=== PATIENT | female | born 1945 | race Caucasian/White ===

== ENCOUNTER → 2017-05-02 | Day surgery (SDC) | payer MEDICARE, BC ==
[~2017-05-02] MED LIST: ALBU2.5V14 NEB; AMLO5TAB4 PO; BUDE10.2 IH; CHOL400C PO; CRAN500C6 PO; CYAN10005 PO; DIPH25CA58 PO; HYDR25TA9 PO; HYDROmorphone 2 MG/ML VIAL IV PRN; IV RINGERS,LACTATED 1000ML 1,000 ML IV SCH; LIDOCAINE 1% PF 2 ML VIAL. ID PRN; MAGN400C PO; MELA3TAB2 PO; MORPHINE SULFATE 4 MG/ML DISP.SYRIN. IV PRN; ONDANSETRON PF 4 MG/2 ML VIAL. IV PRN; POTASSIUM CHLO10 MEQ PO; PROAIR HFA8.5 GM INH; PROCHLORPERAZINE 10 MG/2 ML VIAL. IV PRN; PROPOFOL 40 ML IV ONE; TIOT4MIS3 IH; fentaNYL PF VIAL 100 MCG/2 ML VIAL IV PRN
[2017-05-02 08:19] VITALS: BP 103/61
--- NOTE | 2017-05-02 09:36 | HP ---
ADMIT DATE: 05/02/2017 An updated history and physical. REASON: Positive Cologuard, family history of colon cancer and personal history of colon polyps. HISTORY OF PRESENT ILLNESS: This is a 72-year-old female with past medical history significant for colonic polyps as well as arthritis, asthma, depression, hypertension. Is seen for interval colon exam. She has had formed stools without diarrhea or constipation. Weight and appetite have been stable. Cologuard recently was positive. With these findings, she is here for surveillance exam. PAST MEDICAL HISTORY: COPD, asthma, arthritis, anxiety, history of colonic polyps, hypertension. ALLERGIES: None. MEDICATIONS: Include albuterol, Norvasc, Symbicort, vitamin D, B12, potassium chloride. FAMILY AND SOCIAL HISTORY: Significant for colorectal cancer with the father; and 2 siblings, colon polyps. Siblings had esophageal cancer. Mother has had myocardial infarction. PAST SURGICAL HISTORY: Partial colon resection. REVIEW OF SYSTEMS: Per records. PHYSICAL EXAMINATION: GENERAL: Reveals a well-nourished, well-developed female. VITAL SIGNS: Temperature is 98.3, pulse 73, respirations 20. HEENT: Normocephalic and atraumatic head. Pupils and extraocular muscles not tested. Sclerae anicteric. NECK: Supple. LUNGS: Clear. CARDIOVASCULAR: Reveals an S1, S2, without S3, S4 or appreciable murmur. ABDOMEN: Soft abdomen, normal bowel sounds, without appreciable hepatosplenomegaly. EXTREMITIES: Reveals no cyanosis, clubbing or edema. IMPRESSION: Surveillance colonoscopy is recommended with family history of colon cancer, personal history of polyps and a recent positive fecal occult blood. Risks and benefits have been previously discussed. The patient is willing to proceed at this time. BONITA JUDD MD DR: OTF/pam JOB#: [id number] / [id number]
--- NOTE | 2017-05-03 14:13 | PATHOLOGY ---
PATHOLOGY REPORT * * * * * * * * FINAL DIAGNOSIS: A. Splenic flexure polypectomy: - Tubular adenoma. B. Colon biopsies, hepatic flexure polyp: - Tubular adenoma. C. Colon biopsies, cecal polyp: - Tubular adenoma. (JPM:pit; 05/03/2017) COMMENT: There is no high grade dysplasia or evidence of malignancy. (JPM:pit; 05/03/2017) REPORT ELECTRONICALLY SIGNED BY: Freedom Lynch M.D. DATE/TIME: 05/03/2017 14:12 * * * * * * * * GROSS PATHOLOGY: A. The specimen received in formalin, labeled "Floridalma Woanaly and splenic flexure polyp", is a urrutia-brown rubbery polyp 0.8 x 0.5 x 0.4 cm, inked black, bisected and entirely submitted in A1 B. The specimen received in formalin, labeled "Floridalma Woanaly and hepatic flexure polyp", are two polypoid fragments 0.5 x 0.3 x 0.2 cm (inked blue) and 0.6 x 0.4 x 0.3 cm (inked black, bisected). The specimen is entirely submitted in B1. C. The specimen received in formalin, labeled "Floridalma Wohletz and cecal polyp", are multiple urrutia polypoid fragments the aggregate measure 0.5 x 0.5 x 0.1 cm, entirely submitted in C1. (SWS; 05/02/2017) INITIAL CPT CODE(S): A; 77008 B; 29610 C; 00377 Professional services performed [place] [facility] [address] Technical services performed by [facility] at [address] [place] [address], [facility] [address] [place] [address]. SPECIMEN(S) RECEIVED: A.Splenic flexure polyp B.Heptaic flexure polyp C.Cecal polyp CLINICAL HISTORY: History of colon polyp/resection; polyps PATIENT: FLORIDALMA HAMMER /AGE: 904/16/1945 (Age: 72) PATIENT #: [id number] ALT CASE #: SPECIMEN COLLECTION DATE: 05/02/2017 SPECIMEN RECEIVED DATE: 05/02/2017 [facility] - [address] [place] [address] - PHONE: [phone] * * * END OF REPORT * * *
== END | disposition home or self-care (01) ==
LOC: SURG 06:09
PROVIDERS: ATTEND Internal Medicine Gastroenterology
DX: Z09 Encounter for follow-up examination after completed treatment for conditions other than malignant neoplasm (principal); Z86.010 Personal history of colon polyps; K64.0 First degree hemorrhoids; D12.3 Benign neoplasm of transverse colon; D12.0 Benign neoplasm of cecum; I10 Essential (primary) hypertension; F41.9 Anxiety disorder, unspecified; F32.9 Major depressive disorder, single episode, unspecified; Z86.69 Personal history of other diseases of the nervous system and sense organs
CPT/HCPCS: 45385; 88305; J2704

== ENCOUNTER → 2019-08-05 | Outpatient (CLI) | payer MEDICARE, BC ==
[2017-05-02 08:19] VITALS: BP 103/61
[~2019-08-05] MED LIST changes: +ALBU2.5V8 INH; +CYAN-25 PO; -CYAN10005 PO; +HYDR-2145 PO; -HYDR25TA9 PO; -HYDROmorphone 2 MG/ML VIAL IV PRN; -IV RINGERS,LACTATED 1000ML 1,000 ML IV SCH; -LIDOCAINE 1% PF 2 ML VIAL. ID PRN; -MELA3TAB2 PO; +MELA3TAB56 PO; -MORPHINE SULFATE 4 MG/ML DISP.SYRIN. IV PRN; -ONDANSETRON PF 4 MG/2 ML VIAL. IV PRN; +POTA10TA12 PO; -POTASSIUM CHLO10 MEQ PO; -PROAIR HFA8.5 GM INH; -PROCHLORPERAZINE 10 MG/2 ML VIAL. IV PRN; -PROPOFOL 40 ML IV ONE; -fentaNYL PF VIAL 100 MCG/2 ML VIAL IV PRN
[2019-08-05] MEDS: REGADENOSON 0.4 MG/5 ML DISP.SYRIN. IV ONE (08:15)
--- NOTE | 2019-08-05 12:15 | CARD ---
MR#: [id number] Date of Study: 08/05/2019 Ordering Physician: ROSS GONSALEZ, Referring Physician: ROSS GONSALEZ, Tech: Glenis Banegas APPROVED REPORT EXAM: Two-dimensional and M-mode echocardiogram with Doppler and color Doppler. Other Information Quality : AverageHR: 62bpm INDICATION COPD Murmur 2D DIMENSIONS RVDd4.1 (2.9-3.5cm)Left Atrium(2D)3.5 (1.6-4.0cm) IVSd1.2 (0.7-1.1cm)Aortic Root(2D)3.3 (2.0-3.7cm) LVDd4.9 (3.9-5.9cm)LVOT Diameter2.0 (1.8-2.4cm) PWd1.2 (0.7-1.1cm)LVDs3.7 (2.5-4.0cm) FS (%) 24.7 %SV56.2 ml LVEF(%)48.8 (>50%) Aortic Valve AoV Peak Darryn.134.9cm/sAoV VTI29.5cm AO Peak GR.7.3mmHgLVOT Peak Darryn.113.9cm/s LVOT VTI 26.20cmAO Mean GR.4mmHg PAWEL (VMAX)2.57vp1WRW (VTI)2.82cm2 Mitral Valve MV E Ofcpwgrq00.4cm/sMV DECEL XEHG681mx MV A Nuoxbbyb09.7cm/sMV E Mean Gr.1mmHg MV ZEI13qxA/A Ratio0.7 MVA (PHT)2.72cm2 TDI E/Lateral E'11.8E/Medial E'14.5 Pulmonary Valve PV Peak Tyroxdua64.4cm/sPV Peak Grad.3mmHg Tricuspid Valve TR P. Ndwkskdx552jn/sRAP BFCSRHPE3ohIa TR Peak Gr.46ewIsDIKT13deTw Pulmonary Vein S1 Vpeyoubn03.6cm/sD2 Zlhqkgkm66.5cm/s PVa pbhcnqsv738xjoe LEFT VENTRICLE The left ventricle is normal size. There is mild concentric left ventricular hypertrophy. The left ve ntricular systolic function is normal. The ejection fraction is 55%. There is normal LV segmental wal l motion. Transmitral Doppler flow pattern is Grade I-abnormal relaxation pattern. RIGHT VENTRICLE The right ventricle is normal size. There is normal right ventricular wall thickness. The right ventr icular systolic function is normal. ATRIA The left atrium size is normal. The right atrium size is normal. The interatrial septum is intact wit h no evidence for an atrial septal defect or patent foramen ovale as noted on 2-D or Doppler imaging. AORTIC VALVE The aortic valve is normal in structure and function. Doppler and Color Flow revealed trace aortic re gurgitation. There is no significant aortic valvular stenosis. MITRAL VALVE The mitral valve is normal in structure and function. There is no evidence of mitral valve prolapse. There is no mitral valve stenosis. Doppler and Color-flow revealed trace mitral regurgitation. TRICUSPID VALVE The tricuspid valve is normal in structure and function. Doppler and Color Flow revealed trace tricus pid regurgitation with an estimated PAP of 24 mmHg. There is no tricuspid valve stenosis. PULMONIC VALVE The pulmonic valve is not well visualized. Doppler and Color Flow revealed trace pulmonic valvular re gurgitation. GREAT VESSELS The aortic root is normal in size. The IVC is normal in size and collapses >50% with inspiration. PERICARDIAL EFFUSION There is no evidence of significant pericardial effusion. Critical Notification Critical Value: No <Conclusion> The left ventricular systolic function is normal. The ejection fraction is 55%. There is normal LV segmental wall motion. Transmitral Doppler flow pattern is Grade I-abnormal relaxation pattern. Trace mitral regurgitation. Trace tricuspid regurgitation with an estimated PAP of 24 mmHg. There is no evidence of significant pericardial effusion. Signed by : Jeff Casper, Electronically Approved : 08/05/2019 12:15:42
--- NOTE | 2019-08-05 12:28 | RAD ---
MR#: [id number] Date of Study: 08/05/2019 Ordering Physician: MCKENZIE CHAUHAN, Referring Physician: JESSENIA GARCIA Tech: RT Regina RivasR) (N) APPROVED REPORT Test Type: Pharmacological Stress Nurse/Tech: Violetta Davidson RN Test Indications: chest pain/SOA Cardiac History: See Electronic Medical Record Medications: See Electronic Medical Record Medical History: COPD, See Electronic Medical Record Resting ECG: SR Resting Heart Rate: 66 bpm Resting Blood Pressure: 149/87mmHg Pretest Chest Pain: No chest pain Nurse/Tech Notes S1S2, lungs CTA, denied SOA or chest pain Consent: The procedure was explained to the patient in lay terms. Informed consent was witnessed. Agustin eout was entered into [employer]. History and Stress Test performed by RT Evelyn (R) (N) Pharm. Details Pharmacologic stress testing was performed using 0.4mg per 5ml of regadenoson given intravenously ove r 7-10 seconds. Stress Symptoms Pt c/o a brief "funny feeling" and a headache during the stress potion of the test. She denied CP or SOA. POST EXERCISE Reason for Termination: Infusion complete Max HR: 80 bpm Max Blood Pressure: 153/72mmHg Blood Pressure response to exercise: Normal blood pressure response during stress. Heart Rate response to exercise: Normal HR response during stress Chest Pain: No. Arrhythmia: Yes. BBB noted on EKG ST Change: No. INTERPRETATION Stress EKG Conclusion: Baseline EKG showed sinus rhythm. Transient bundle branch noted during stress . No definite ischemic changes at peak stress. No arrhythmias. Imaging Protocol IMAGE PROTOCOL: Rest Tc-99m/stress Tc-99m 1 day Rest: Stress: Viability: Radiopharm.Tc99m ElhhlcqxbWq26h Sestamibi Xphk86dDq 31mCi Duration 13.5min. 13.5min. Img Date 08/05/2019 08/05/2019 Inj-Img Basg73gwy. 45min. Rest Admin Site:IV - Right AntecubitalAdministrator:MELODIE Hawley, ARRT (R)(N) Stress Admin Site: IV - Right AntecubitalAdministrator: RT Evelyn (R)(N) STRESS DATA End Diast. Vol.83.0mlLVEDV index BSA45.0ml End Syst. Vol.22.0mlLVESV index BSA12.0ml Myocardial Odyk945.0gEject. Wmwbuuph53.0% Stress Scores Regional WT0.00Summed WT11.00 Regional WM0.00Summed WM8.00 Study quality was good. Left Ventricular size was Normal at Rest and Stress. Lung uptake was . Left Ventricular ejection fraction is 73%. The rest and stress images show normal perfusion, normal contraction and thickening. LV Perf. Quant 17 Seg. SSS0.00 17 Seg. SRS0.00 17 Seg. SDS0.00 Stress Defect Extent (% LAD)0.00Rest Defect Extent (% LAD)0.00Rev. Defect Extent (% LAD)0.00 Stress Defect Extent (% LCX) 0.00Rest Defect Extent (% LCX)0.00Rev. Defect Extent (% LCX)0.00 Stress Defect Extent (% RCA)0.00Rest Defect Extent (% RCA)0.00Rev. Defect Extent (% RCA)0.00 Stress Defect Extent (% MIGUE)0.00Rest Defect Extent (% MIGUE)0.00Rev. Defect Extent (% MIGUE)0.00 Conclusion 1. Regadenoson cardioisotope stress test did not show any evidence of ischemia or infarct. 2. Normal left ventricular systolic function with ejection fraction calculated at 73%. 3. Low risk for cardiac events. Signed by : Mckenzie Chauhan, Electronically Approved : 08/05/2019 12:28:16
== END | disposition home or self-care (01) ==
LOC: NM 07:34
PROVIDERS: ATTEND Internal Medicine Cardiovascular Disease
DX: I51.7 Cardiomegaly (principal)
CPT/HCPCS: 78452; 93017; 93306; A9500; J2785

== ENCOUNTER → 2020-01-21 | Outpatient (CLI) | payer MEDICARE, BC ==
[2017-05-02 08:19] VITALS: BP 103/61
[~2020-01-21] MED LIST changes: +MELA3TAB4 PO; -MELA3TAB56 PO
--- NOTE | 2020-01-21 16:13 | KCIC ---
EXAMINATION: LOWER EXT JOINT WO RT INDICATIONS: Right anterior knee pain with recent episode of knee locking. TECHNIQUE: Multiplanar multisequence MRI of the right knee was obtained without contrast. COMPARISON: None. FINDINGS: MENISCI: There is a horizontal tear at the posterior horn-body junction lateral meniscus surfacing inferiorly, with a small amount of meniscal tissue slightly displaced slightly into the lateral recess. The medial meniscus is intact. LIGAMENTS: There is mucoid degeneration of the anterior cruciate ligament, which is intact. The posterior cruciate ligament, medial collateral ligament, and lateral collateral ligament complex including popliteus tendon and iliotibial band are intact. EXTENSOR MECHANISM: Mild thickening and increased signal the proximal patellar tendon suggests tendinopathy. Quadriceps tendon is intact. Retinacula are intact. Fat pads are normal. BONES AND CARTILAGE: No acute fracture. Marrow signal is normal. There is deep partial thickness cartilage loss throughout the medial compartment. Milder, superficial and deep partial-thickness cartilage loss in the lateral compartment. The patellofemoral cartilage is relatively maintained. OTHER: There is physiologic fluid in the joint. Mild semimembranosus-tibial collateral ligament bursitis. Mild prepatellar bursal thickening. Muscles are normal. IMPRESSION: 1. Horizontal undersurface tear of the posterior horn-body junction lateral meniscus. 2. Superficial and deep partial-thickness cartilage loss in the medial and lateral compartments. 3. Mild proximal patellar tendinopathy. 4. Mild semimembranosus-tibial collateral ligament bursitis and prepatellar bursal thickening. Electronically signed by: Alisia Ruiz MD (01/21/2020 4:10 PM) [id number]
== END | disposition home or self-care (01) ==
LOC: KCIC MRI 14:14
PROVIDERS: ATTEND Family Medicine
DX: S83.281A Other tear of lateral meniscus, current injury, right knee, initial encounter (principal); M76.41 Tibial collateral bursitis [Pellegrini-Stieda], right leg; M25.461 Effusion, right knee; X58.XXXA Exposure to other specified factors, initial encounter; Y93.89 Activity, other specified; Y92.89 Other specified places as the place of occurrence of the external cause; Y99.8 Other external cause status; Z68.35 Body mass index [BMI] 35.0-35.9, adult
CPT/HCPCS: 73721